=== PATIENT | female | born 1960 | race Asian ===

== ENCOUNTER → 2018-09-21 | Outpatient (CLI) | payer OTHER ==
--- NOTE | 2018-09-21 12:13 | Diagnostic Imaging Report ---
INDICATION: Routine screening. COMPARISON: Comparison is made with prior mammograms from 06/17/2015 and 11/12/2011. TECHNIQUE: 2D and 3D bilateral screening mammography was performed with computer-aided detection (CAD) system. FINDINGS: Both breasts show marked parenchymal density and heterogeneity, limiting the sensitivity of mammography. There is a nodular density noted in the right breast laterally at posterior depth approximately 6 cm from the nipple on the CC view. No definite corresponding density on the MLO view is seen. Left breast is unremarkable. No suspicious microcalcifications are seen. The axillae are unremarkable. IMPRESSION: Right breast density. Additional views including spot compression and rolled CC views are recommended. ACR BI-RADS Category 0: Incomplete. (Needs additional imaging evaluation). Result letter will be mailed to the patient. Note: At least 10% of breast cancer is not imaged by mammography. Dictated by: Dictated on workstation # [id number]
== END ==
LOC: RAD 10:10
PROVIDERS: ATTEND Obstetrics & Gynecology
DX: Z12.31 Encounter for screening mammogram for malignant neoplasm of breast (principal); N85.2 Hypertrophy of uterus; N60.02 Solitary cyst of left breast
CPT/HCPCS: 77067

== ENCOUNTER → 2018-10-12 | Outpatient (CLI) | payer OTHER ==
--- NOTE | 2018-10-12 12:27 | Diagnostic Imaging Report ---
INDICATION: Right breast density. Patient presents for additional views. COMPARISON: Correlation is made with recent screening study from 09/21/2018. TECHNIQUE: 2D and 3D unilateral right diagnostic mammography was performed including a rolled CC, spot compression CC, as well as spot compression ML and conventional ML views. The current study was also evaluated with a Computer Aided Detection (CAD) system. FINDINGS: The right breast is heterogeneously dense. Area of rounded density in the outer right breast posterior depth appears to resolve with additional views and most likely represent superimposed tissue. There is a small circumscribed nodule just anterior to this laterally, which has the appearance of an intraparenchymal lymph node. No suspicious calcifications are seen. IMPRESSION: Additional views fail to demonstrate a discrete mass at the area of density noted on screening mammogram. This most likely represents superimposed tissue. Patient may return to routine annual screening mammography. ACR BI-RADS Category 2: Benign findings. Result letter will be mailed to the patient. Note: At least 10% of breast cancer is not imaged by mammography. Dictated by: Dictated on workstation # [id number]
== END ==
LOC: RAD 08:18
PROVIDERS: ATTEND Obstetrics & Gynecology
DX: R92.2 Inconclusive mammogram (principal)

== ENCOUNTER → 2019-01-31 | Outpatient (CLI) | payer OTHER ==
[~2019-01-31] MED LIST: GADOBUTROL 7.5 MMOL/7.5 ML (GADAVIST) VIAL IV ONE
[2019-01-31 14:19] LABS: ALANINE AMINOTRANSFERASE 69 U/L (0-55); ALBUMIN 4.6 GM/DL (3.2-4.5); ALKALINE PHOSPHATASE 56 U/L (40-136); BILIRUBIN,TOTAL 0.7 MG/DL (0.1-1.0); BUN/CREATININE RATIO 14; CALCIUM 9.8 MG/DL (8.5-10.1); CARBON DIOXIDE 27 MMOL/L (21-32); CHLORIDE 97 MMOL/L (98-107); CREATININE SERUM 0.76 MG/DL (0.60-1.30); GFR ESTIMATED > 60; GLUCOSE 98 MG/DL (70-105); POTASSIUM 4.1 MMOL/L (3.6-5.0); SODIUM 136 MMOL/L (135-145); TOTAL PROTEIN 8.4 GM/DL (6.4-8.2)
--- NOTE | 2019-01-31 18:45 | Diagnostic Imaging Report ---
PROCEDURE: MR imaging abdomen with and without contrast with MRCP sequences. TECHNIQUE: Multiplanar, multisequence MR imaging of the abdomen was performed with and without contrast. Dedicated MRCP sequences with three-dimensional reformats were also obtained and provided. DATE: January 31, 2019. INDICATION: 58-year-old female, common bile duct dilation. Abdominal pain. COMPARISON: None available. FINDINGS: The liver is unremarkable in size and contour. There is no identified liver lesion. The main, right, and left portal veins are patent. There is no identified gallstone. There is no intrahepatic bile duct dilation. The common bile duct measures up to 8 mm in diameter which is just above the upper limits of normal. There is a questionable round low signal filling defect within the lower third of the common bile duct seen on axial series 3 image 19 and also likely present on the MRCP sequence image 36 on series 5. This measures small in size and is estimated at roughly 2 mm. This is not seen on the axial 2-D fiesta sequence. There appears to be conventional pancreatic ductal anatomy. The main pancreatic duct is normal in caliber. There is no identified abnormal pancreatic ductal side branch. The pancreatic parenchyma is unremarkable. The spleen is normal in size. The adrenal glands are unremarkable. There is a 3 mm nonenhancing right renal lesion too small to characterize. There is no suspicious renal mass. There is no hydronephrosis. IMPRESSION: 1. Common bile duct diameter measuring 8 mm which is just above the upper limits of normal. There is a questionable round filling defect within the lower third of the common bile duct measuring 2 mm in size which potentially could relate to a common bile duct stone. There is no intrahepatic bile duct dilation. Recommend correlation with laboratory values. 2. Additional MRI abdomen evaluation without and with intravenous contrast is grossly unremarkable. Dictated by: Dictated on workstation # [id number]
== END ==
LOC: RAD 13:42
PROVIDERS: ATTEND Family Medicine
DX: K83.8 Other specified diseases of biliary tract (principal); R10.9 Unspecified abdominal pain; R74.0 Nonspecific elevation of levels of transaminase and lactic acid dehydrogenase [LDH]
CPT/HCPCS: 36415; 74183; 80053